=== PATIENT | female | born 1975 | race Caucasian/White ===

== ENCOUNTER 2020-10-01 02:54 | Emergency (ER) | payer OTHER ==
[~2020-10-01 02:54] MED LIST: BIOTIN5000 MCG PO; DEPAKOTE ER250 MG PO; MINOCYCLINE HCL50 M1 PO; NORCO 5-325 TA1 EACH PO; VENLAFAXINE HC225 MG PO; ZOFRAN4 MG PO
[2020-10-01 04:02] LABS: BASOPHIL 0.9 % (0-2); EOSINOPHIL 4.3 % (0-5); HCT 40.7 % (37.0-47.0); HGB 14.2 g/dl (12.5-16.0); LYMPHOCYTE 38.3 % (15-48); MCH 36.1 pg (25.0-31.0); MCHC 34.9 g/dL (32.0-36.0); MCV 103.6 fL (78.0-100.0); MONOCYTE 9.6 % (0-12); MPV 10.4 fL (6.0-9.5); NEUTROPHIL 46.6 % (41-80); NRBC 0; PLT 212 K/uL (150-400); RBC 3.93 M/uL (4.20-5.40); RDW 11.5 % (11.5-14.0); WBC 9.3 K/uL (4.0-10.5)
[2020-10-01 04:02] LABS: BILIRUBIN NEGATIVE (NEGATIVE); BLOOD NEGATIVE Ery/uL (NEGATIVE); CLARITY CLEAR (CLEAR); COLOR YELLOW (YELLOW); GLUCOSE (U) NORMAL (NORMAL); LEUKOCYTES NEGATIVE Leu/uL (NEGATIVE); NITRITE NEGATIVE (NEGATIVE); PROTEIN NEGATIVE (NEGATIVE); UROBILINOGEN 0.2 mg/dL (0.2-1.0)
[2020-10-01 04:23] LABS: ALBUMIN 3.2 g/dL (3.4-5.0); BILIRUBIN - TOTAL 0.3 mg/dL (0.2-1.0); BUN/CREAT RATIO (CALC) 22.4 RATIO; CREATININE 0.76 mg/dL (0.51-0.95); GLOBULIN (CALCULATION) 2.8 g/dL; POTASSIUM 4.9 mmol/L (3.5-5.1)
[2020-10-01] MEDS ORDERED: ONDANSETRON ODT4 MG SL (06:04)
== END 2020-10-01 06:23 | disposition home or self-care (01) ==
LOC: FER 02:54
PROVIDERS: Emergency Medicine Emergency Medical Services
DX: E87.6 Hypokalemia (principal); F17.210 Nicotine dependence, cigarettes, uncomplicated; Z90.49 Acquired absence of other specified parts of digestive tract
CPT/HCPCS: 36415; 80053; 81003; 85025; J2270; J2405; J7030